=== PATIENT | female | born 1970 | race Two or more races ===

== ENCOUNTER 2025-02-18 21:42 | Emergency (ER) | payer MEDICAID ==
[~2025-02-18] VITALS: Ht 160 cm; Wt 68.0 kg
[2025-02-19] MEDS ORDERED: IBUPROFEN 400 MG TABLET ONE (00:29)
[2025-02-19] MEDS: IBUPROFEN 400 MG TABLET PO ONE (00:29)
[2025-02-19 02:03] VITALS: BP 134/80; TEMP 97.6; O2SAT 99
== END 2025-02-19 02:04 | disposition home or self-care (01) ==
LOC: ER 21:43
DX: S13.4XXA Sprain of ligaments of cervical spine, initial encounter (principal); S23.3XXA Sprain of ligaments of thoracic spine, initial encounter; S09.90XA Unspecified injury of head, initial encounter; I10 Essential (primary) hypertension; V49.40XA Driver injured in collision with unspecified motor vehicles in traffic accident, initial encounter; Y93.89 Activity, other specified; Y92.415 Exit ramp or entrance ramp of street or highway as the place of occurrence of the external cause; Y99.8 Other external cause status
CPT/HCPCS: 70450-TC; 72125-TC; 72128-TC